=== PATIENT | female | born 1980 | race Caucasian/White ===

== ENCOUNTER 2018-05-02 07:28 | Day surgery (SDC) | payer BC ==
[2018-05-02] MEDS ORDERED: DIPHENHYDRAMINE 50 MG INJ IV (11:00)
[2018-05-02] MEDS ORDERED: MEPERIDINE 25 MG INJ IV (11:00)
[2018-05-02] MEDS ORDERED: HYDROmorphONE 1 MG/5 ML IV SYRINGE IV ×3 (11:00)
[2018-05-02] MEDS ORDERED: ONDANSETRON 4 MG INJ IV (11:00)
[2018-05-02] MEDS ORDERED: OXYCODONE/ACETAMINOPHEN (5/325) TAB PO (11:00)
[2018-05-02] MEDS ORDERED: ONDANSETRON 4 MG INJ (11:06)
[2018-05-02] MEDS ORDERED: METOCLOPRAMIDE 10 MG INJ (11:06)
[2018-05-02] MEDS ORDERED: FENTAnyl 50 MCG/ML VIAL (11:06)
[2018-05-02] MEDS ORDERED: PROPOFOL 20 ML (11:06)
[2018-05-02] MEDS ORDERED: EPINEPHrine 1 MG/ML 30 ML INJ INJ (11:30)
[2018-05-02] MEDS ORDERED: LIDOCAINE 1%/EPI 30 ML INJ (11:34)
[2018-05-02] MEDS ORDERED: GELATIN SIZE 100 SPONGE (11:56)
== END 2018-05-02 14:48 | disposition home or self-care (01) ==
LOC: SDS 07:28
DX: H66.91 Otitis media, unspecified, right ear (principal); E03.9 Hypothyroidism, unspecified
CPT/HCPCS: 69436; 84703